=== PATIENT | male | born 1985 | race Two or more races ===

== ENCOUNTER 2017-01-21 06:49 | Emergency (ER) | payer MEDICAID, OTHER ==
[~2017-01-21] VITALS: Ht 175.3 cm; Wt 72.6 kg
[2017-01-21 09:00] VITALS: BP 142/90
[2017-01-21] MEDS: LIDOCAINE 2%HCL (LOCAL ANESTH.) INJ 20ML MDV ONE (09:27)
== END 2017-01-21 10:05 | disposition home or self-care (01) ==
LOC: EDBD 06:49 → ER 06:56
DX: S91.112A Laceration without foreign body of left great toe without damage to nail, initial encounter (principal); S90.452A Superficial foreign body, left great toe, initial encounter; F17.210 Nicotine dependence, cigarettes, uncomplicated; F12.10 Cannabis abuse, uncomplicated; X58.XXXA Exposure to other specified factors, initial encounter; Y93.89 Activity, other specified; Y99.8 Other external cause status; Y92.89 Other specified places as the place of occurrence of the external cause
CPT/HCPCS: 10120; 73630; 99291

== ENCOUNTER 2024-07-27 15:53 | Emergency (ER) | payer MEDICAID | END 2024-07-27 17:28 | disposition left against medical advice (07) | LOC: ER 15:53 | DX: F99 Mental disorder, not otherwise specified (principal); Z53.21 Procedure and treatment not carried out due to patient leaving prior to being seen by health care provider ==